=== PATIENT | female | born 1965 | race Hispanic/Latino ===

== ENCOUNTER 2019-02-02 23:21 | Emergency (ER) | payer SELFPAY ==
[2019-02-02] MEDS ORDERED: HYDROcodone/Acetaminophen 5/325 mg Tablet ONE (23:40)
--- NOTE | 2019-02-03 00:08 | RAD ---
3 views left ankle: 02/03/2019 COMPARISON: None HISTORY: Ankle pain FINDINGS: The talar dome and ankle mortise are intact. There is enthesophyte formation at the origin of the plantar aponeurosis and the insertion of the Achilles tendon. There is medial and lateral soft tissue swelling. No displaced fracture or evidence of dislocation. IMPRESSION: Soft tissue swelling with no displaced fracture or dislocation seen.
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
== END 2019-02-03 00:45 | disposition home or self-care (01) ==
LOC: ERS 23:21
DX: S99.912A Unspecified injury of left ankle, initial encounter (principal); W10.9XXA Fall (on) (from) unspecified stairs and steps, initial encounter